=== PATIENT | female | born 1995 | race Caucasian/White ===

== ENCOUNTER 2017-03-26 18:12 | Inpatient (IN) | payer BC ==
[~2017-03-26] VITALS: Ht 162.6 cm; Wt 58.7 kg
[2017-03-26] MEDS ORDERED: ZOLO100T PO (18:27)
[2017-03-27] MEDS ORDERED: ACETAMINOPHEN TAB 650MG DOSE (2X325MG) PO PRN
[2017-03-27] MEDS ORDERED: MAALOX 30 ML SUSP *UDC PO PRN
[2017-03-27] MEDS ORDERED: HALOPERIDOL 5 MG TAB PO PRN
[2017-03-27] MEDS ORDERED: MOM 30ML SUSPENSION UDC PO PRN
[2017-03-27] MEDS ORDERED: TRAZ50TA11 PO (01:47)
[2017-03-27 02:04] VITALS: BP 134/82
[2017-03-27] MEDS ORDERED: SERTRALINE 100 MG TAB PO SCH (09:00)
--- NOTE | 2017-03-27 09:11 | HPEPDOC ---
Medical History and Physical Date of Admission Mar 26, 2017 at 23:51 History and Physical PCP: Dr Eleuterio Jimenez [facility] ATTENDING: Dr. Yrn May HPI: 21yoF admitted to [facility] for depression, being medically examined today. Pt is transferred from [facility] following admission there for SI, OD with trazodone and Ibuprofen with ETOH. Poison control was consulted, Pt felt stable to transfer to [facility] 03/26/17. Cording to records the patient had one episode of nausea and vomiting relieved with Zofran. The patient states today she has had abdominal pain for 3 days across the mid abdomen. She denies nausea or vomiting. She states she has had diarrhea also for 3 days. She denies any urinary complaints, dysuria, frequency or urgency. Denies any back or flank pain. Denies any fevers, chills, weakness, fatigue, HEBERT, CP, SOB, cough, palpitations, change in bladder habits. PMHx: Depression Anxiety History of SI. OD 2013. Insomnia History of self-mutilation PSHX: [place] teeth extraction SOCHX: Resides in: [facility] Marital Status: Single Kids: None Employment: Shop employee, college student Tobacco use: E-cigarette daily ETOH: States once per month 2 drinks Illicit Drugs: Denies IV Drug Use: Denies Tattoos or piercings done unprofessionally: Denies FAMHX: Mother: Alive, fibromyalgia, osteoarthritis Father: Alive, heart disease Siblings: One brother Alive, well Children: None Unexpected deaths due to medical reasons: None. ROS: As noted in HPI, otherwise 11pt ROS of systems reviewed and remarkable only for LMP 03/25/17. PE: GEN: 21 yo F, appears stated age. Well-nourished, well developed. No acute distress. Alert and oriented x 3. Pleasant, flat affect. HEENT: Normocephalic, atraumatic. Pupils are equal, round, and reactive to light. Extraocular movements are intact. No nystagmus appreciated. Sclera are nonicteric. Conjunctiva without injection. Nose midline. Nasal turbinates without bogginess. EACs both patent BL. TMs both visualized and manriquez with good cone of light, no bulging or erythema. No facial asymmetry. Moist mucous membranes. Dentition fair. Pharynx pink and moist, no cobblestoning. Neck supple , trachea midline. No lymphadenopathy or thyromegaly appreciated. CHEST: Regular rate and rhythm, +S1, +S2 LUNGS: Clear to auscultation bilaterally. No wheezes, rales, or rhonchi. Breathing appears symmetric and easy. Patient is speaking in full sentences. No accessory muscle use. ABD: Flat, soft, tenderness with palpation in right upper quadrant and left upper quadrant areas, non-distended. +Bowel sounds throughout. No rebound or guarding. No costovertebral angle tenderness. EXT: Pulses 2+ bilaterally dorsalis pedis and radial. No lower extremity edema appreciated. SKIN: [place], dry, warm. Capillary refill <2sec. No rashes. Healed superficial lacerations noted forearms bilaterally. NEURO: Alert and oriented x 3. Cranial nerves III-XII are intact. No focal deficits appreciated. Labs [facility] WBC 8.4 Hgb 9.1 HCT 29.6 Plt 268 Na 138 K 3.6 Cl 111 BUN 10 SCr 0.90 Gluc 85 Ca 7.6 TSH 1.21 HCG neg UA Trace LE, mod epithelial cells. CXR NAD EKG: [facility] 03/25/17 SR 79 bpm. TOXICOLOGY: remarkable for ETOH 0.32 A&P: 21yoF admitted to [facility] for depression, 1. Psych. Plan per Psychiatry. EKG on file. 2. Nicotine dependence. Patch available. 3. Abdominal pain/diarrhea. Request CBC with differential, CMP, amylase. UA/ urine culture. CT abdomen and pelvis. GI panel. Ponce diet as tolerated. Encourage by mouth liquids. Monitor. 4. Follow up with PCP on discharge. 5. Substance use. Per psychiatry. 6. Staff member, Abena PORTER present throughout exam. Vital Signs Vital Signs Date Time Temp Pulse Resp B/P (MAP) Pulse Ox O2 Delivery O2 Flow Rate FiO2 03/27/17 02:04 99.1 84 18 134/82 (99) 03/27/17 01:09 100 Room Air Home Medications Scheduled Sertraline Hcl (Zoloft) 100 Mg Tab, 100 MG PO DAILY Scheduled PRN Trazodone HCl (Trazodone HCl) 50 Mg Tab, 50 MG PO QHS PRN for INSOMNIA Allergies Coded Allergies: No Known Allergies (Unverified , 03/26/17) Vita Gutierrez Mar 27, 2017 09:11
--- NOTE | 2017-03-27 09:59 | REP ---
CT ABDOMEN PELVIS WITHOUT CONTRAST: HISTORY: Bilateral lower abdominal pain. 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 The lung bases are clear. The liver and the spleen are normal in size and homogeneous in texture. No adrenal lesion is seen on either side. The pancreas and gallbladder are unremarkable. The kidneys are morphologically intact. No hydronephrosis or calculus is seen. No retroperitoneal mass or adenopathy is observed. Small bowel and large bowel loops are unremarkable in the upper abdomen. Pelvic CT images show mild to moderate amount of cul-de-sac fluid in the pelvic reflections. There is no evidence of free intraperitoneal air. There is air in noninflamed appearing appendix. No ovarian mass or cyst is appreciated. No uterine abnormality is seen. The urinary bladder is intact. IMPRESSION: Small to moderate amount of cul-de-sac fluid in the pelvic reflections. No other abnormalities seen. Signed by Richard Vasques MD 03/27/2017 10:19 A
[2017-03-27 10:18] LABS: BASO % 0.5 % (0.0-1.0); EOS % 1.1 % (0.0-3.0); LARGE UNSTAINED CELL # 0.1 K/mm3 (0.0-0.4); LARGE UNSTAINED CELL % 1.2 % (0.0-4.0); LYMPH # 0.8 K/mm3 (1.5-6.5); LYMPH % 16.9 % (24.0-44.0); MEAN CORPUSCULAR HEMOGLOBIN 23.8 pg (27.0-33.0); MEAN CORPUSCULAR VOLUME 76.7 fl (80.0-96.0); MONO # 0.2 K/mm3 (0.0-0.8); MONO % 5.4 % (0.0-5.0); NEUTROPHILS # 3.3 K/mm3 (1.8-7.7); NEUTROPHILS % 74.9 % (36.0-66.0); PLATELET COUNT, AUTOMATED 253 k/mm3 (150-450); RED CELL DISTRIBUTION WIDTH 16.5 % (11.5-14.5); WHITE BLOOD COUNT 4.4 K/mm3 (4.0-10.0)
[2017-03-27 10:49] LABS: ALBUMIN/GLOBULIN RATIO 0.97 (1.00-1.93); ALKALINE PHOSPHATASE 66 U/L (45-117); ALT/SGPT 15 U/L (12-78); AMYLASE 70 U/L (25-115); ANION GAP 8 MEQ/L (8-16); AST/SGOT 11 U/L (15-37); BILIRUBIN,TOTAL 0.2 MG/DL (0.2-1.0); BLOOD UREA NITROGEN 7 MG/DL (7-18); CARBON DIOXIDE LEVEL 20 MEQ/L (21-32); CHLORIDE LEVEL 113 MEQ/L (98-107); CREATININE FOR GFR 0.81 MG/DL (0.55-1.02); GLUCOSE, FASTING 80 MG/DL (70-105); POTASSIUM SERUM 3.4 MEQ/L (3.5-5.1); SODIUM LEVEL 141 MEQ/L (136-145); TOTAL PROTEIN 6.1 GM/DL (6.4-8.2)
[2017-03-27 11:28] LABS: FERRITIN 7 NG/ML (8-252); PERCENT SATURATION 4.4 % (13.2-37.4); TOTAL IRON BINDING CAPACITY 410 UG/DL (250-450)
[2017-03-27] MEDS ORDERED: POTASSIUM CHLORIDE 10 MEQ SR TABLET PO ONE (13:00)
[2017-03-27] MEDS: FERROUS SULFATE 325MG TAB PO SCH (13:27)
[2017-03-27 15:54] LABS: VITAMIN B12 LEVEL 531 PG/ML (247-911)
[2017-03-27 15:55] LABS: FOLATE 8.2 NG/ML (>5.4)
[2017-03-27 18:00] VITALS: BP 118/74
[2017-03-27] MEDS: traZODone 50 MG TAB PO PRN (22:49)
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
[2017-03-28 07:19] VITALS: BP 126/75
[2017-03-28] MEDS: FERROUS SULFATE 325MG TAB PO SCH (08:42)
[2017-03-28] MEDS: SERTRALINE HCL 50 MG TAB PO SCH (08:43)
[2017-03-28 09:37] LABS: ANION GAP 5 MEQ/L (8-16); BLOOD UREA NITROGEN 8 MG/DL (7-18); CALCIUM LEVEL 8.3 MG/DL (8.5-10.1); CARBON DIOXIDE LEVEL 25 MEQ/L (21-32); CHLORIDE LEVEL 109 MEQ/L (98-107); CREATININE FOR GFR 0.67 MG/DL (0.55-1.02); GLUCOSE, FASTING 80 MG/DL (70-105); POTASSIUM SERUM 4.2 MEQ/L (3.5-5.1); SODIUM LEVEL 139 MEQ/L (136-145)
--- NOTE | 2017-03-28 12:52 | MHIPNPDOC ---
[facility] Progress Note Progress Note DATE OF SERVICE: 03/28/17 INTERVAL HISTORY: Medication Side effects: Denies Behavior: Patient is still very anxious, has been more interactive but still remains mostly all the time in her room. Group Attendance: Has attended some groups Psychiatric Symptom change: Patient was seen more depressed today than yesterday. VITAL SIGNS: See below. NEW TEST RESULTS: See below CURRENT MEDICATIONS: See below. MENTAL STATUS EXAMINATION: General: Alert, oriented 3, with good hygiene and poor eye contact Speech: Sparse, soft spoken, coherent Thought processes: Linear, logical Thought content: Coherent Abstract reasoning, and computation: Fair Description of associations: Not loose Description of abnormal or psychotic thoughts: Denies auditory or visual hallucinations, denies thought delusions, denies current suicidal or homicidal ideation. Judgment: Poor Insight: Poor Orientation: Oriented 3 Recent and remote memory: Intact Attention span and concentration: Fair Fund of knowledge: Fair Mood: Depressed, anxious Affect: Congruent to mood, constricted DIAGNOSES: 1. Posttraumatic stress disorder. 2. Borderline personality disorder. ASSESSMENT: Patient was seen early this morning and she was more depressed than yesterday. She seems to be more insightful of her situation and she is allowing her emotions to flow. She is still in danger because she has tried to kill herself twice impulsively. Therefore she he will need to stay longer at the inpatient mental health unit until she is stabilized. MANAGEMENT PLAN: Medications: Zoloft has been increased to 150 mg by mouth daily but she continues on Trazodone 50 mg by mouth daily at bedtime when necessary for insomnia Psychotherapy: Will be encouraged to attend groups Social: Has poor social interactions with peers and staff. She is appointments because she is very anxious Misc: -- Disposition: Patient needs to stay longer at the inpatient mental health unit for further stabilization and resolution of her depressive/suicidal symptomatology. TIME SPENT: 20 minutes. Vital Signs Vital Signs Date Time Temp Pulse Resp B/P (MAP) Pulse Ox O2 Delivery O2 Flow Rate FiO2 03/28/17 07:19 98.9 81 18 126/75 (92) Room Air 03/27/17 01:09 100 Laboratory Data 24H Labs Laboratory Tests 2 03/27/17 18:10: Urine Appearance HAZY, Urine Color STRAW, Urine pH 5.0, Urine Specific [place] 1.012, Urine Protein NEGATIVE, Urine Glucose (UA) NEGATIVE, Urine Ketones NEGATIVE, Urine Urobilinogen 0.2, Urine Bilirubin NEGATIVE, Urine Leukocyte Esterase NEGATIVE, Urine Blood 3+H, Urine Nitrite NEGATIVE, Urine WBC (Auto) 6H , Urine RBC (Auto) TNTCH, Urine Hyaline Casts (Auto) 0, Urine Bacteria (Auto) 1+ H, Urine Squamous Epithelial Cells 4, Urine Mucus (Auto) SMALL, Urine Sperm ( Auto) 03/28/17 08:54: Anion Gap 5L, Blood Urea Nitrogen 8, Creatinine 0.67, Sodium Level 139, Potassium Level 4.2#, Chloride Level 109H, Carbon Dioxide Level 25, Calcium Level 8.3L CBC/BMP Laboratory Tests 03/28/17 08:54 Calcium Level 8.3 L Current Medications Current Medications Acetaminophen (Tylenol Tab) 650 mg Q6HP PRN PO HEADACHE or DISCOMFORT; Start at 00:00; Stop 04/26/17 at 00:00 Al Hydrox/Mg Hydrox/Simethicone (Mylanta) 30 ml Q4HP PRN PO HEARTBURN/ INDIGESTION; Start 03/27/17 at 00:00; Stop 04/26/17 at 00:00 Ferrous Sulfate (Ferrous Sulfate) 325 mg DAILY PO Last administered on 08:42; Start 03/27/17 at 09:00; Stop 04/26/17 at 08:59 Haloperidol (Haldol) 5 mg Q4HP PRN PO ANXIETY/AGITATION; Start 03/27/17 at 00: 00; Stop 04/26/17 at 00:00 Home Med (Med Rec Complete!) ASDIRECTED XX ; Start 03/27/17 at 02:00; Stop at 02:00; Status DC Lorazepam (Ativan) 2 mg Q4HP PRN PO ANXIETY/AGITATION; Start 03/27/17 at 00:00 ; Stop 04/03/17 at 00:00 Magnesium Hydroxide (Milk Of Magnesia) 30 ml DAILYPRN PRN PO CONSTIPATION; Start 03/27/17 at 00:00; Stop 04/26/17 at 00:00 Sertraline HCl (Zoloft) 100 mg QAM PO Last administered on 03/27/17 08:56; Start 03/27/17 at 09:00; Stop 03/27/17 at 16:32; Status DC Sertraline HCl (Zoloft) 150 mg QAM PO Last administered on 03/28/17 08:43; Start 03/28/17 at 09:00; Stop 04/27/17 at 08:59 Trazodone HCl (Desyrel) 50 mg QHSP PRN PO INSOMNIA Last administered on 22:49; Start 03/27/17 at 00:00; Stop 04/26/17 at 00:00 Allergies Coded Allergies: No Known Allergies (Unverified , 03/26/17) ALBERTO HERNANDEZ MD Mar 28, 2017 12:52
[2017-03-28 18:00] VITALS: BP 131/80
[2017-03-28] MEDS: traZODone 50 MG TAB PO PRN (22:58)
[2017-03-29 06:28] VITALS: BP 111/72
[2017-03-29] MEDS: FERROUS SULFATE 325MG TAB PO SCH (08:43)
[2017-03-29] MEDS: SERTRALINE HCL 50 MG TAB PO SCH (08:44)
--- NOTE | 2017-03-29 16:29 | IPN ---
DATE: 03/29/2017 VITAL SIGNS: Temperature 98.3, pulse 77, respirations 16, blood pressure 111/72. CURRENT MEDICATIONS: - Zoloft 150 mg every morning - trazodone 50 mg at bedtime as needed HISTORY OF PRESENT ILLNESS: This is a 21-year-old white female admitted through the emergency room after taking an overdose. The patient's Zoloft was increased several days ago. She is tolerating the higher dosage well. She has no side effects from it. The patient reports her mood is better. She feels more positive. She is socializing more on the unit. She has good attendance to group. She feels more positive about the future. Depressive symptoms are less prominent. MENTAL STATUS EXAMINATION: The patient is alert, oriented and cooperative. The patient is mildly anxious, moderately depressed. She is not currently suicidal. Insight and judgment seem improved. No signs of psychosis. Grooming and hygiene appear good. DIAGNOSES: 1. Posttraumatic stress disorder (PTSD). 2. Borderline personality. PLAN: Continue current psychotropics.
[2017-03-29 18:00] VITALS: BP 113/69
[2017-03-29] MEDS: LORazepam 2 MG TAB PO PRN (19:32)
[2017-03-29] MEDS: traZODone 50 MG TAB PO PRN (21:32)
[2017-03-30 06:20] VITALS: BP 100/60
[2017-03-30] MEDS: SERTRALINE HCL 50 MG TAB PO SCH (09:26)
[2017-03-30] MEDS: FERROUS SULFATE 325MG TAB PO SCH (09:26)
[2017-03-30] MEDS: LORazepam 2 MG TAB PO PRN ×2 (11:52→20:20)
--- NOTE | 2017-03-30 13:28 | IPN ---
DATE: 03/30/2017 VITAL SIGNS: Temperature 97.6, pulse 67, respirations 16, blood pressure 100/60. CURRENT MEDICATIONS: - Zoloft 100 mg every morning - trazodone 50 mg at bedtime as needed - Haldol 5 mg every 4 hours as needed - Ativan 2 mg every 4 hours as needed HISTORY OF PRESENT ILLNESS: The patient reports that her mood is improved. Depression is less prominent. She does feel homesick however. Anxiety is better. She likes the Zoloft, she is tolerating it well. She has more interests and motivation to hobbies, such as drawing and reading. The patient reports that she is going to group programs and is participating actively. No other complaints. MENTAL STATUS EXAMINATION: Anxiety is minimal. Depression is less prominent. She is not suicidal. Insight and judgment appear good today. She is not psychotic. Grooming and hygiene is quite good. DIAGNOSES: 1. Posttraumatic stress disorder (PTSD). 2. Borderline personality. PLAN: Continue current psychotropics.
[2017-03-30 18:00] VITALS: BP 103/56
[2017-03-30] MEDS: traZODone 50 MG TAB PO PRN (22:04)
[2017-03-31 06:53] VITALS: BP 103/64
[2017-03-31] MEDS: FERROUS SULFATE 325MG TAB PO SCH (08:10)
[2017-03-31] MEDS: SERTRALINE HCL 50 MG TAB PO SCH (08:10)
[2017-03-31] MEDS: LORazepam 2 MG TAB PO PRN (08:20)
[2017-03-31] MEDS ORDERED: SERT50TA PO (13:01)
[2017-03-31] MEDS ORDERED: FERR1TAB8 PO (13:01)
[2017-03-31] MEDS ORDERED: TRAZO50TA PO (13:01)
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
== END 2017-03-31 15:36 | disposition home or self-care (01) | DRG 755 ==
LOC: M ED 18:12 → M ED INP 23:51 → M PSY 03-27 01:37
PROVIDERS: ADMIT Psychiatry & Neurology Psychiatry; ATTEND Psychiatry & Neurology Psychiatry
DX: F43.10 Post-traumatic stress disorder, unspecified (principal); F60.3 Borderline personality disorder; Z79.899 Other long term (current) drug therapy; G47.00 Insomnia, unspecified; F17.200 Nicotine dependence, unspecified, uncomplicated; R10.9 Unspecified abdominal pain; R19.7 Diarrhea, unspecified; Z62.810 Personal history of physical and sexual abuse in childhood

== ENCOUNTER → 2018-09-23 | Outpatient (CLI) | payer BC ==
[~2018-09-23] MED LIST: FERR1TAB8 PO; SERT50TA PO; TRAZ-160 PO; TRAZO50TA PO; ZOLO100T PO
--- NOTE | 2018-09-23 16:38 | REP ---
Right ankle four views History: Pain There is no acute fracture or dislocation. The joint space is normal in appearance. Ossified density is present inferior to the lateral malleolus. This represents ligamentous or tendon calcification. Impression: There is no acute fracture or dislocation. Electronically Signed by Yonatan Olmstead MD 09/23/2018 04:30 P
[2018-09-23 17:35] LABS: BASO # 0.1 10^3/uL (0.0-0.2); BASO % 1.6 % (0.0-1.0); EOS % 0.5 % (0.0-3.0); HEMATOCRIT 41.8 % (36.0-47.0); HEMOGLOBIN 13.9 g/dl (12.0-15.5); LYMPH # 1.7 10^3/uL (1.5-6.5); LYMPH % 27.5 % (24.0-44.0); MEAN CORPUSCULAR HEMOGLOBIN 28.1 pg (27.0-33.0); MEAN CORPUSCULAR HGB CONC 33.3 g/dl (32.0-36.5); MEAN CORPUSCULAR VOLUME 84.4 fl (80.0-96.0); MONO # 0.5 10^3/uL (0.0-0.8); MONO % 8.5 % (0.0-5.0); NEUTROPHILS # 3.8 10^3/uL (1.8-7.7); NEUTROPHILS % 61.6 % (36.0-66.0); PLATELET COUNT, AUTOMATED 344 10^3/uL (150-450); RED BLOOD COUNT 4.95 10^6/uL (4.00-5.40); WHITE BLOOD COUNT 6.1 10^3/uL (4.0-10.0)
[2018-09-23 18:07] LABS: ERYTHROCYTE SEDIMENTATION RATE 4 mm/hr (0-20)
[2018-09-23 18:25] LABS: ALBUMIN 3.4 GM/DL (3.2-5.2); ALT/SGPT 57 U/L (12-78); BILIRUBIN,TOTAL 0.3 MG/DL (0.2-1.0); BLOOD UREA NITROGEN 4 MG/DL (7-18); CARBON DIOXIDE LEVEL 23 MEQ/L (21-32); CHLORIDE LEVEL 107 MEQ/L (98-107); FREE T4 1.07 NG/DL (0.76-1.46); GLOMERULAR FILTRATION RATE > 60.0 (>60); GLUCOSE, FASTING 95 MG/DL (70-100); POTASSIUM SERUM 4.3 MEQ/L (3.5-5.1); SODIUM LEVEL 140 MEQ/L (136-145); TOTAL PROTEIN 6.8 GM/DL (6.4-8.2)
[2018-09-23 18:26] LABS: VITAMIN B12 LEVEL 498 PG/ML
[2018-09-23 18:27] LABS: FOLATE 1.2 NG/ML
== END ==
LOC: M WUC 15:21
PROVIDERS: ATTEND Physician Assistant
DX: M25.571 Pain in right ankle and joints of right foot (principal)